=== PATIENT | female | born 1955 | race Caucasian/White ===

== ENCOUNTER 2016-08-28 07:40 | Emergency (ER) | payer OTHER ==
[2016-08-28 07:55] VITALS: BP 109/64
--- NOTE | 2016-08-28 11:34 | UC ---
triston Becerra Timothy, scribed for Anita Perkins DO on 08/28/16 at 0815 . FLU HPI - HPI Summary HPI Summary: Mitzy Duncan is a 60 yo female presenting to [facility] with watery, explosive, foul diarrhea since 08/27/16, worse through the night and this morning. She also complains of leg cramps, fatigue, RODRIGUES, and dehydration. She states she has a Hx of leg cramps, and only has had them in bed while trying to sleep. Pt had leg cramps while sleeping last night but none since rising from bed today. She denies any abd pain, CP, SOB, muscle pain(other than leg cramps), urinary Sx. She denies any camping trips or antibiotic use. She is on well water, and no one else around her uses the well water. She denies exposure to farm animals or reptillian pet. Pt states she has had 30 episodes since 08/27/16 morning. She states she has not been drinking as much water as she should given the water loss via diarrhea. Her MHx includes HLD, migraine, kortney on cpap, GERD, hiatal hernia, obesity, DJD, depression, tobacco use. - History of Current Complaint Stated Complaint: DIARRHEA Time Seen by Provider: 08/28/16 08:27 Hx Obtained From: Patient Onset/Duration: Sudden Onset, Lasting Hours, Still Present Severity Currently: Moderate Severity Initially: Moderate Pain Intensity: 6 Pain Scale Used: 0-10 Numeric Associated Signs & Symptoms: Positive: Headache, Diarrhea - Allergy/Home Medications Allergies/Adverse Reactions: Allergies Allergy/AdvReac Type Severity Reaction Status Date / Time Amoxicillin AdvReac Intermediate Diarrhea Verified 08/28/16 07:55 Codeine AdvReac Intermediate GI Upset Verified 08/28/16 07:55 Home Medications: Home Medications Acyclovir 1 tab PO BID 08/28/16 [History Confirmed 08/28/16] Hormone Replacement 2 tab PO DAILY 08/28/16 [History Confirmed 08/28/16] PMH/Surg Hx/FS Hx/Imm Hx Cardiovascular History Of: Denies: Hypertension Neurological History Of: Reports: Migraine - USUALLY ONE A MONTH, NONE FOR A WHILE Psychological History Of: Reports: Depression - ON MEDICATION - Surgical History Surgical History: Yes Surgery Procedure, Year, and Place: slevectomy (gastric surgery) - Family History Known Family History: Positive: Cardiac Disease, Hypertension Negative: Diabetes - Social History Occupation: Employed Full-time - [employer] @ [place] Alcohol Use: Occasionally Substance Use Type: None Smoking Status (MU): Heavy Every Day Tobacco Smoker Amount Used/How Often: 1/2ppd When Did the Patient Quit Smoking/Using Tobacco: 5 yrs ago Cessation Counseling: Patient Advised to Stop - Immunization History Most Recent Tetanus Shot: not sure Review of Systems Constitutional: Fatigue, Other - feels dehydrated Skin: Negative Eyes: Negative ENT: Negative Respiratory: Negative Cardiovascular: Negative Gastrointestinal: Diarrhea Genitourinary: Negative Motor: Negative Neurovascular: Negative Musculoskeletal: Other: - leg cramps Neurological: Headache Psychological: Negative All Other Systems Reviewed And Are Negative: Yes Physical Exam Triage Information Reviewed: Yes Appearance: Well-Appearing, No Pain Distress, Well-Nourished Vital Signs: Initial Vital Signs Temp 99.2 F 08/28/16 07:48 Pulse 93 08/28/16 07:48 Resp 14 08/28/16 07:48 BP 109/64 08/28/16 07:48 Pulse Ox 97 08/28/16 07:48 Vital Signs Reviewed: Yes Eyes: Positive: Conjunctiva Clear. Negative: Discharge ENT: Positive: Hearing grossly normal, Other: - mmm. Negative: Muffled/hoarse voice Neck exam: Normal Neck: Positive: Supple Respiratory: Positive: Lungs clear, Normal breath sounds, No respiratory distress, No accessory muscle use Cardiovascular: Positive: RRR, No Murmur, Brisk Capillary Refill Abdomen Description: Positive: Nontender, Soft. Negative: Distended, Guarding Bowel Sounds: Positive: Present, Hyperactive Musculoskeletal Exam: Normal Neurological: Positive: Alert, Muscle Tone Normal Psychological Exam: Normal Psychological: Positive: Age Appropriate Behavior Skin Exam: Normal - warm, dry, normal color Skin: Positive: Other - good skin turgor Re-Evaluation - Re-Evaluation First Eval Re-Evaluation Time: 08:45 Change: Unchanged Comment: Pt was informed of her Dx and advised to drink more fluids to replenish water loss from her diarrhea. She is agreeable to be discharged. Flu Course/Dx - Course Course Of Treatment: Mitzy Duncan is a 60 yo female presenting to [facility] with diarrhea, leg cramps, RODRIGUES, and dehydration since 08/27/16 evening, worsening through this morning. After clinical examination, she will be discharged with gastroenteritis with appropriate instructions. - Differential Dx/Diagnosis Differential Diagnosis/HQI/PQRI: Influenza, Other - gastroenteritis Provider Diagnoses: gastroenteritis Discharge - Discharge Plan Condition: Stable Disposition: HOME Patient Education Materials: Dehydration (ED), Gastroenteritis (ED), Nutrition Tips for Relief of Diarrhea (ED) Forms: *Gen. Provider Communication, *Work Release Referrals: Duglas Cardenas MD [Primary Care Provider] - If Needed The documentation as recorded by the triston matta Timothy accurately reflects the service I personally performed and the decisions made by , Anita Perkins DO.
== END 2016-08-28 09:05 | disposition home or self-care (01) ==
LOC: UCEAST 07:40
DX: K52.9 Noninfective gastroenteritis and colitis, unspecified (principal); F32.9 Major depressive disorder, single episode, unspecified
CPT/HCPCS: 99212; G0463

== ENCOUNTER 2017-09-11 08:08 | Emergency (ER) | payer OTHER ==
[2017-09-11 08:24] VITALS: BP 151/85
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
== END 2017-09-11 09:00 | disposition home or self-care (01) ==
LOC: UCEAST 08:08
DX: T25.011A Burn of unspecified degree of right ankle, initial encounter (principal); X17.XXXA Contact with hot engines, machinery and tools, initial encounter; Y92.9 Unspecified place or not applicable; Z88.3 Allergy status to other anti-infective agents; Z88.5 Allergy status to narcotic agent; Z98.84 Bariatric surgery status; Z82.49 Family history of ischemic heart disease and other diseases of the circulatory system; F12.90 Cannabis use, unspecified, uncomplicated; Z87.891 Personal history of nicotine dependence
CPT/HCPCS: 99212; G0463